=== PATIENT | female | born 1965 | race Hispanic/Latino ===

== ENCOUNTER 2016-09-02 15:25 | Emergency (ER) | payer SELFPAY ==
[~2016-09-02] VITALS: Ht 170.2 cm; Wt 84.8 kg
[~2016-09-02 15:25] MED LIST: HYDR-3816 PO
--- OUTSIDE RECORDS SUMMARY | 2016-09-02 15:30 | XMS REPORT ---
Author Author SUMANTH MADRIGAL [facility] eClinicalWorks Address Unknown Phone Unavailable Care Team Providers Care Post Office Manager Name Role Phone SUMANTH MADRIGAL CP Unavailable Allergies, Adverse Reactions, Alerts Substance Reaction Event Type N.K.D.A. Info Not Available Non Drug Allergy Problems Problem Type Condition Code Onset Dates Condition Status Problem FPC current use of insulin Z79.4 Active Problem Essential hypertension I10 Active Problem Type 2 diabetes mellitus without complications E11.9 Active Assessment Type 2 diabetes mellitus without complications E11.9 Active Assessment Essential hypertension I10 Active Assessment Acute right eye pain H57.11 Active Assessment FPC current use of insulin Z79.4 Active Medications Medication Code System Code Instructions Start Date End Date Status Dosage Metformin HCl [facility] [address]-79 1000 MG Orally Twice a day 1 tablet with meals PrednisoLONE Acetate [facility] [address]-34 1 % Ophthalmic Four times a day 2 drops into affected eye Lantus [facility] [address]-81 100 UNIT/ML Subcutaneous not defined Lisinopril [facility] [address]-64 5 MG Orally not defined Eye Drops [facility] [address]-53 0.05 % Ophthalmic every 6 hrs 1 drop into affected eye as needed Vigamox [facility] [address]-59 0.5 % Ophthalmic Four times a day 1 drop into affected eye Gabapentin [facility] [address]-41 300 MG Orally Three times a day 1 capsule Humalog [facility] [address]-83 100 UNIT/ML Subcutaneous not defined Naproxen ND 0 200 Orally Twice a day 1 tablet Procedures Procedure Coding System Code Date MICROALBUMIN, QUANTITATIVE CPT-4 90956 May 10, 2016 LIPID PANEL CPT-4 06363 May 10, 2016 ASSAY OF URINE CREATININE CPT-4 87109 May 10, 2016 GLYCATED HEMOGLOBIN TEST CPT-4 47977 May 10, 2016 COMPREHEN METABOLIC PANEL CPT-4 22862 May 10, 2016 Office Visit, New Pt., Level 3 CPT-4 45472 May 10, 2016 VENIPUNCT, ROUTINE* CPT-4 23486 May 10, 2016 Vital Signs Date/Time: May 10, 2016 Cardiac Monitoring Heart Rate 82 bpm Weight 192.0 lbs Height 5'6" in BMI 30.99 Index Blood Pressure Diastolic 82 mmHg Blood Pressure Systolic 132 mmHg Results Name Result Date Reference Range Unit Abnormality Flag ROUTINE VENIPUNCTURE A1C (IN HOUSE) ----Exp date [id number] ----Previous A1c N/A [id number] ----Lot [id number] ----A1C IN HOUSE 11.8 [id number] 4.3 - 5.6 % Summary Purpose eClinicalWorks Submission
[2016-09-02] MEDS ORDERED: INSU100V6 SQ (15:38)
[2016-09-02] MEDS ORDERED: METOPROLOL (15:38)
[2016-09-02] MEDS ORDERED: morphine INJ 10 MG/ML 1ML (SYR OR VIAL) IVP STA (15:47)
[2016-09-02] MEDS ORDERED: NS IV 1000 ML 1,000 ML IV ONE (15:48)
[2016-09-02 15:52] LABS: BASOPHILS % (AUTO) 0 % (0-10); EOSINOPHILS # (AUTO) 0.2 10^3/uL (0.0-0.3); EOSINOPHILS % (AUTO) 2 % (0-10); LYMPHOCYTES # (AUTO) 3.1 X 10^3 (1.0-4.0); LYMPHOCYTES % (AUTO) 25 % (12-44); MEAN CORPUSCULAR HEMOGLOBIN 30 PG (25-34); MEAN CORPUSCULAR HGB CONC 33 G/DL (32-36); MEAN CORPUSCULAR VOLUME 89 FL (80-99); MEAN PLATELET VOLUME 11.3 FL (7.4-10.4); MONOCYTES # (AUTO) 0.6 X 10^3 (0.0-1.0); MONOCYTES % (AUTO) 4 % (0-12); NEUTROPHILS # (AUTO) 8.6 X 10^3 (1.8-7.8); NEUTROPHILS % (AUTO) 69 % (42-75); PLATELET COUNT 278 10^3/uL (130-400); RED BLOOD COUNT 4.58 10^6/uL (4.35-5.85); RED CELL DISTRIBUTION WIDTH 12.1 % (10.0-14.5); WHITE BLOOD COUNT 12.5 10^3/uL (4.3-11.0)
[2016-09-02] MEDS ORDERED: ONDANSETRON 4 MG/2 ML (SDV) Z0FRAN IVP ONE (16:00)
[2016-09-02 16:04] LABS: ALANINE AMINOTRANSFERASE 22 U/L (0-55); ALBUMIN 3.7 G/DL (3.2-4.5); ANION GAP 11 MMOL/L (5-14); ASPARTATE AMINO TRANSFERASE 13 U/L (5-34); BILIRUBIN,TOTAL 0.2 MG/DL (0.1-1.0); BLOOD UREA NITROGEN 14 MG/DL (7-18); BUN/CREATININE RATIO 19; CALCIUM 9.5 MG/DL (8.5-10.1); CARBON DIOXIDE 25 MMOL/L (21-32); CHLORIDE 103 MMOL/L (98-107); CREATININE SERUM 0.74 MG/DL (0.60-1.30); GFR ESTIMATED > 60; GLUCOSE 260 MG/DL (70-105); POTASSIUM 4.1 MMOL/L (3.6-5.0); SODIUM 139 MMOL/L (135-145); TOTAL PROTEIN 7.1 G/DL (6.4-8.2)
--- NOTE | 2016-09-02 16:56 | Diagnostic Imaging Report ---
PROCEDURE: CT urinary tract, rule out kidney stone. TECHNIQUE: Multiple contiguous axial images were obtained through the abdomen and pelvis without the use of intravenous contrast. INDICATION: Hematuria. FINDINGS: The lung base on the right side demonstrate area of decreased density within the posterior segment of the right lower lobe which may relate to air trapping with an associated pneumatocele also present. There are mild lobulations in the contour of the liver which could correlate with chronic liver disease. Correlate clinically. No calcified gallstones seen. The spleen is not enlarged. The adrenal glands and the pancreas appear unremarkable. The kidneys demonstrate no hydronephrosis. There is a 2 mm nonobstructive stone in the upper pole of the left kidney. The abdominal aorta is normal in caliber. No para-aortic significantly enlarged lymph node seen. There is a tiny fat-containing umbilical hernia. The uterus and adnexa appear grossly unremarkable. There is no free fluid or fluid collection in the abdomen or pelvis seen. Tiny subcutaneous air bubble is seen under the skin in the right lower abdomen. This could be related to recent injection of subcutaneous medication. The osseous structures demonstrate a transitional lumbosacral junction with partial sacralization of L5. Mild degenerative changes seen. IMPRESSION: 1. A 2 mm upper pole nonobstructive left kidney stone. No other urinary tract stones. 2. Mild skin thickening and subcutaneous tiny air bubble in the right lower abdomen could relate to subcutaneous medication injection. Correlate with history. 3. Tiny fat-containing umbilical hernia. Dictated by: Dictated on workstation # [id number]
--- NOTE | 2016-09-02 17:08 | ED Abdominal Pain ---
General Chief Complaint: Abdominal/GI Problems Stated Complaint: ABD PAIN Nursing Triage Note: C/O CONSTIPATION X3DAYS, WITH INCREASED PAIN AND DIFFICULTY URINATING ONSET TODAY AT 1400 Sepsis Screen: No Definite Risk History of Present Illness Time Seen By Provider: 15:45 Initial Comments evaluation for abdominal pain 3 days. Patient has been constipated as well. She has a history of nephrolithiasis in the past. Timing/Duration: 1-3 Hours Severity/Quality: Severe Location: Flank (right) Radiation: No Radiation Activities at Onset: None Modifying Factors: Improves With Analgesics, Improves With Resting Associated Symptoms: Denies Symptoms Allergies and Home Medications Allergies Coded Allergies: No Known Drug Allergies (Unverified , 05/04/16) Home Medications (Reported) Ciprofloxacin HCl 500 Mg Tablet #6 500 MG PO BID Prescribed by: BARBARA ASKEW on 09/02/161756 Hydrocodone/Acetaminophen 1 Each Tablet #8 1 EACH PO Q6H Prescribed by: EVELYN TAO on 05/04/16 0531 Hydrocodone/Acetaminophen 1 Each Tablet #20 1 EACH PO Q4H PRN PRN PAIN Prescribed by: BARBARA ASKEW on 09/02/161756 Insulin Glargine,Hum.rec.anlog 100 Unit/1 Ml Vial 60 UNIT SQ HS (Reported) Review of Systems Constitutional: no symptoms reported see HPI EENTM: No Symptoms Reported See HPI Respiratory: No Symptoms Reported See HPI Cardiovascular: No Symptoms Reported See HPI Gastrointestinal: No Symptoms Reported See HPI Genitourinary: See HPI Flank Pain Musculoskeletal: no symptoms reported see HPI Skin: no symptoms reported see HPI Psychiatric/Neurological: No Symptoms Reported See HPI Endocrine: No Symptoms Reported See HPI Hematologic/Lymphatic: No Symptoms Reported See HPI All Other Systems Reviewed Negative Unless Noted: Yes Past Tsgmqzr-Nmeegh-Fybevp Hx Patient Social History Alcohol Use: Denies Use Recreational Drug Use: No Smoking Status: Current Everyday Smoker Type Used: Cigarettes Recent Foreign Travel: No Contact w/Someone Who Travel: No Recent Infectious Disease Expo: No Recent Hopitalizations: No Seasonal Allergies Seasonal Allergies: No Surgeries HX Surgeries: Yes Surgeries: Abdominal, Appendectomy, Coronary Stent, Orthopedic Respiratory Hx Respiratory Disorders: No Cardiovascular Hx Cardiac Disorders: Yes Cardiac Disorders: Coronary Artery Disease, Hypertension Neurological Hx Neurological Disorders: No Reproductive System Hx Reproductive Disorders: No Genitourinary Hx Genitourinary Disorders: No Gastrointestinal Hx Gastrointestinal Disorders: No Musculoskeletal Hx Musculoskeletal Disorders: No Endocrine Hx Endocrine Disorders: Yes Endocrine Disorders: Diabetes, Insulin dep HEENT HX ENT Disorders: No Cancer Hx Cancer: No Psychosocial Hx Psychiatric Problems: No Integumentary HX Skin/Integumentary Disorder: No Blood Transfusions Hx Blood Disorders: No Reviewed Nursing Assessment Reviewed/Agree w Nursing PMH: Yes Physical Exam Vital Signs VS - Last 72 Hours, by Label 09/02/16 09/02/16 15:27 18:10 Temp 98.0 Pulse 99 72 Resp 18 18 B/P 185/101 Pulse Ox 98 Capillary Refill : Less Than 3 Seconds General Appearance: WD/WN no apparent distress Neck: non-tender full range of motion normal inspection Respiratory: chest non-tender lungs clear Cardiovascular: normal peripheral pulses regular rate, rhythm no murmur Gastrointestinal: normal bowel sounds non tender soft Extremities: normal range of motion non-tender no calf tenderness normal capillary refill Back: normal inspection no vertebral tenderness CVA tenderness (R)No CVA tenderness (L) Neurologic/Psychiatric: no motor/sensory deficits alert normal mood/affect oriented x 3 Skin: normal color warm/dry Lymphatic: no adenopathy Focused Exam Lactic Acid Level Laboratory Tests Test 09/02/16 15:40 Alanine Aminotransferase (ALT/SGPT) 22U/L (0-55) Albumin 3.7G/DL (3.2-4.5) Alkaline Phosphatase 123U/L (40-136) Anion Gap 11MMOL/L (5-14) Aspartate Amino Transf (AST/SGOT) 13U/L (5-34) BUN/Creatinine Ratio 19 Blood Urea Nitrogen 14MG/DL (7-18) Calcium Level 9.5MG/DL (8.5-10.1) Carbon Dioxide Level 25MMOL/L (21-32) Chloride Level 103MMOL/L (98-107) Creatinine 0.74MG/DL (0.60-1.30) Estimat Glomerular Filtration Rate > 60 Glucose Level 260MG/DL (70-105) H Potassium Level 4.1MMOL/L (3.6-5.0) Sodium Level 139MMOL/L (135-145) Total Bilirubin 0.2MG/DL (0.1-1.0) Total Protein 7.1G/DL (6.4-8.2) Progress/Results/Core Measures Results/Orders Lab Results Laboratory Tests Test 09/02/16 15:40 3/16/17 17:03 Range/Units Alanine Aminotransferase (ALT/SGPT) 22 0-55 U/L Albumin 3.7 3.2-4.5 G/DL Alkaline Phosphatase 123 40-136 U/L Anion Gap 11 5-14 MMOL/L Aspartate Amino Transf (AST/SGOT) 13 5-34 U/L BUN/Creatinine Ratio 19 Basophils # (Auto) 0.0 0.0-0.1 10^3/uL Basophils (%) (Auto) 0 0-10 % Blood Urea Nitrogen 14 7-18 MG/DL Calcium Level 9.5 8.5-10.1 MG/DL Carbon Dioxide Level 25 21-32 MMOL/L Chloride Level 103 98-107 MMOL/L Creatinine 0.74 0.60-1.30 MG/DL Eosinophils # (Auto) 0.2 0.0-0.3 10^3/uL Eosinophils (%) (Auto) 2 0-10 % Estimat Glomerular Filtration Rate > 60 Glucose Level 260 H 70-105 MG/DL Hematocrit 41 35-52 % Hemoglobin 13.6 11.5-16.0 G/DL Lymphocytes # (Auto) 3.1 1.0-4.0 X 10^3 Lymphocytes (%) (Auto) 25 12-44 % Mean Corpuscular Hemoglobin 30 25-34 PG Mean Corpuscular Hemoglobin Concent 33 32-36 G/DL Mean Corpuscular Volume 89 80-99 FL Mean Platelet Volume 11.3 H 7.4-10.4 FL Monocytes # (Auto) 0.6 0.0-1.0 X 10^3 Monocytes (%) (Auto) 4 0-12 % Neutrophils # (Auto) 8.6 H 1.8-7.8 X 10^3 Neutrophils (%) (Auto) 69 42-75 % Platelet Count 278 130-400 10^3/uL Potassium Level 4.1 3.6-5.0 MMOL/L Red Blood Count 4.58 4.35-5.85 10^6/uL Red Cell Distribution Width 12.1 10.0-14.5 % Sodium Level 139 135-145 MMOL/L Total Bilirubin 0.2 0.1-1.0 MG/DL Total Protein 7.1 6.4-8.2 G/DL White Blood Count 12.5 H 4.3-11.0 10^3/uL Urine Bacteria FEW H /HPF Urine Bilirubin NEGATIVE NEGATIVE Urine Casts NONE /LPF Urine Clarity VERY CLOUDY H Urine Color YELLOW Urine Crystals NONE /LPF Urine Culture Indicated NO Urine Glucose (UA) 4+ H NEGATIVE Urine Ketones NEGATIVE NEGATIVE Urine Leukocyte Esterase 1+ H NEGATIVE Urine Mucus NEGATIVE /LPF Urine Nitrite NEGATIVE NEGATIVE Urine Protein 3+ H NEGATIVE Urine RBC 50-100 H /HPF Urine RBC (Auto) 5+ H NEGATIVE Urine Specific [place] 1.025 H 1.016-1.022 Urine Squamous Epithelial Cells 2-5 /HPF Urine Urobilinogen NORMAL NORMAL MG/DL Urine WBC RARE /HPF Urine pH 6 5-9 My Orders Orders-AZARBARBARA [employer] Cbc With Automated Diff (09/02/16 15:46) Comprehensive Metabolic Panel (09/02/16 15:46) Ua Culture If Indicated (09/02/16 15:46) Saline Lock/Iv-Start (09/02/16 15:47) Saline Lock/Iv-Start (09/02/16 15:47) Morphine Injection (Morphine Injection (09/02/16 15:47) Saline Lock/Iv-Start (09/02/16 15:48) Ns Iv 1000 Ml (Sodium Chloride 0.9%) (09/02/16 15:48) Ondansetron Injection (Zofran Injectio (09/02/16 16:00) Ct Abd/Pelvis Wo(Kidney Stone) (09/02/16 15:55) Ketorolac Injection (Toradol Injection) (09/02/16 17:53) Medications Given in ED Current Medications Medications Dose Ordered Sig/Opal Route Start Time Stop Time Status Last Admin Dose Admin Ondansetron HCl 4 mg ONCE ONCE IVP 09/02/16 16:00 09/02/16 16:01 DC 09/02/16 16:08 4 MG Sodium Chloride 1,000 ml @ 0 mls/hr Q0M ONCE IV 09/02/16 15:48 09/02/16 15:49 DC 09/02/16 15:52 1,000 MLS/HR Vital Signs/I&O Vital Sign - Last 12Hours 17 09/02/16 15:27 18:10 Temp 98.0 Pulse 99 72 Resp 18 18 B/P 185/101 Pulse Ox 98 Blood Pressure Mean: 129 Progress Note : Time: 15:45 Progress Note Initial evaluation for acute low back pain. Morphine 5 mg IV for pain, normal saline 1 L IV fluids, labs and CT abdomen and pelvis to be completed. 1750 pain improved slightly, discussed findings of labs and CT with patient. Will plan outpatient management with increased oral hydration and analgesics. She has a follow-up appointment on the 09/06/16 at [facility]. Diagnostic Imaging Diagonstic Imaging: CT Plain Films/CT/US/NM/MRI: abdomen, pelvis Comments NAME: JENNIFER TERRELL [facility] REC#: [id number] PT STATUS: REG ER : 1965 PHYSICIAN: BARBARA ASKEW ADMIT DATE: 09/02/16/ER Draft Date of Exam:09/02/16 CT ABD/PELVIS WO(KIDNEY STONE) PROCEDURE: CT urinary tract, rule out kidney stone. TECHNIQUE: Multiple contiguous axial images were obtained through the abdomen and pelvis without the use of intravenous contrast. INDICATION: Hematuria. FINDINGS: The lung base on the right side demonstrate area of decreased density within the posterior segment of the right lower lobe which may relate to air trapping with an associated pneumatocele also present. There are mild lobulations in the contour of the liver which could correlate with chronic liver disease. Correlate clinically. No calcified gallstones seen. The spleen is not enlarged. The adrenal glands and the pancreas appear unremarkable. The kidneys demonstrate no hydronephrosis. There is a 2 mm nonobstructive stone in the upper pole of the left kidney. The abdominal aorta is normal in caliber. No para-aortic significantly enlarged lymph node seen. There is a tiny fat-containing umbilical hernia. The uterus and adnexa appear grossly unremarkable. There is no free fluid or fluid collection in the abdomen or pelvis seen. Tiny subcutaneous air bubble is seen under the skin in the right lower abdomen. This could be related to recent injection of subcutaneous medication. The osseous structures demonstrate a transitional lumbosacral junction with partial sacralization of L5. Mild degenerative changes seen. IMPRESSION: 1. A 2 mm upper pole nonobstructive left kidney stone. No other urinary tract stones. 2. Mild skin thickening and subcutaneous tiny air bubble in the right lower abdomen could relate to subcutaneous medication injection. Correlate with history. 3. Tiny fat-containing umbilical hernia. Dictated on workstation # [id number] Dict: 09/02/16 1635 Trans: 09/02/16 1655 [id number] Interpreted by: DOMO WANG MD Electronically signed by: Reviewed: Reviewed by Me Departure Impression Impression: Primary Impression: Nephrolithiasis Additional Impression: Hyperglycemia due to type 2 diabetes mellitus Qualified Code: E11.65 - Type 2 diabetes mellitus with hyperglycemia Disposition: HOME, SELF-CARE Condition: Stable Departure-Patient Inst. Decision time for Depature: 17:40 Referrals: NO,LOCAL PHYSICIAN (PCP) Primary Care Physician Patient Instructions: Kidney Stones (DC) Add. Discharge Instructions: All discharge instructions reviewed with patient and/or family. Voiced understanding. Increase fluid intake. Return to emergency department for increased pain, decreased urinary output, or any new concerns. Keep appointment with [facility] for [facility] Scripts Hydrocodone/Acetaminophen (Hydrocodon -Acetaminophen 5-325)1 Each Tablet1 Each PO Q4H PRN PAIN #20 TAB Ref 0 Prov:BARBARA ASKEW 09/02/16 Ciprofloxacin HCl (Cipro)500 Mg [id number] Mg PO BID #6 TAB Ref 0 Prov:BARBARA ASKEW 09/02/16 BARBARA ASKEW Sep 02, 2016 17:08
[2016-09-02 17:17] LABS: BILIRUBIN,URINE NEGATIVE (NEGATIVE); KETONES,URINE NEGATIVE (NEGATIVE); LEUKOCYTE ESTERASE ,URINE 1+ (NEGATIVE); NITRITE,URINE NEGATIVE (NEGATIVE); PH,URINE 6 (5-9); PROTEIN,URINE 3+ (NEGATIVE); UROBILINOGEN,URINE NORMAL (NORMAL)
[2016-09-02 17:32] LABS: WBC,URINE RARE /HPF
[2016-09-02] MEDS ORDERED: KETOROLAC 30 MG/ML VIAL IVP STA (17:53)
[2016-09-02] MEDS ORDERED: HYDR-3812 PO (17:57)
[2016-09-02] MEDS ORDERED: CIPR-225 PO (17:57)
[2016-09-02 18:10] VITALS: BP 136/71
== END 2016-09-02 18:10 | disposition home or self-care (01) ==
LOC: EDUNIT# 15:25 → ER 15:26
DX: R10.30 Lower abdominal pain, unspecified (principal); N20.0 Calculus of kidney; K59.00 Constipation, unspecified; I10 Essential (primary) hypertension; E11.65 Type 2 diabetes mellitus with hyperglycemia; F17.210 Nicotine dependence, cigarettes, uncomplicated; Z79.4 Long term (current) use of insulin; Z79.899 Other long term (current) drug therapy; Z95.5 Presence of coronary angioplasty implant and graft
CPT/HCPCS: 36415; 74176; 80053; 81000; 85025; 96361; 96374; 96375

== ENCOUNTER → 2016-10-04 | Outpatient (CLI) | payer OTHER ==
[~2016-10-04] MED LIST changes: +CIPR-225 PO; +HYDR-3812 PO; +INSU100V6 SQ; +METOPROLOL
--- NOTE | 2016-10-08 08:55 | Diagnostic Imaging Report ---
Bilateral screening mammogram The current study was also evaluated with a Computer Aided Detection (CAD) system. INDICATION: Screening. No current complaints stated on the questionnaire. COMPARISON: 07/09/11. FINDINGS: The breasts are composed of heterogeneously dense parenchyma which may decrease mammographic sensitivity. There are occasional benign-appearing calcifications. There is a 1 cm oval asymmetry in the lateral posterior aspect of the left CC projection with no definite correlate on the MLO view. The right breast demonstrates no definite change. IMPRESSION: Focal compression views and ultrasound evaluation for lateral left breast asymmetry is recommended. ACR BI-RADS Category 0: Incomplete. (Needs additional imaging evaluation). Result letter will be mailed to the patient. Note: At least 10% of breast cancer is not imaged by mammography. Dictated by: Dictated on workstation # [id number]
== END ==
LOC: RAD 10:52
PROVIDERS: ATTEND Family Medicine
DX: Z12.31 Encounter for screening mammogram for malignant neoplasm of breast (principal)
CPT/HCPCS: 77067

== ENCOUNTER → 2016-10-25 | Outpatient (CLI) | payer OTHER ==
--- NOTE | 2016-10-25 19:33 | Diagnostic Imaging Report ---
Left breast diagnostic mammogram. INDICATION: Asymmetry along the outer aspect of the left breast. The current study was also evaluated with a Computer Aided Detection (CAD) system. FINDINGS: There is heterogeneously dense parenchyma seen on the left side. The asymmetry noted on the screening exam of 10/04/16 is evaluated with focal compression view which demonstrates an underlying persistent density and question of a correlating asymmetry in the upper aspect of the left breast. This is partially obscured by adjacent fibroglandular tissue. IMPRESSION: Persistent asymmetry in the outer aspect of the left breast with corresponding density appears to be present in the upper aspect of the left breast. Ultrasound evaluation pending. ACR BI-RADS Category 0: Incomplete. (Needs additional imaging evaluation). Result letter will be mailed to the patient. Note: At least 10% of breast cancer is not imaged by mammography. Dictated by: Dictated on workstation # [id number]
--- NOTE | 2016-10-25 20:09 | Diagnostic Imaging Report ---
Left breast ultrasound. INDICATION: Outer left breast asymmetry. FINDINGS: The outer aspect of the left breast is scanned with no abnormality seen. IMPRESSION: Negative study. The asymmetry seen on mammography could be related to summation artifact of parenchyma. Six-month follow-up left breast mammogram is recommended to ensure stability or resolution. ACR BI-RADS Category 3: Probably benign findings. Dictated by: Dictated on workstation # [id number]
== END ==
LOC: RAD 13:10
PROVIDERS: ATTEND Family Medicine
DX: R92.8 Other abnormal and inconclusive findings on diagnostic imaging of breast (principal)
CPT/HCPCS: 76642

== ENCOUNTER → 2017-05-11 | Outpatient (CLI) | payer OTHER ==
--- NOTE | 2017-05-11 19:30 | Diagnostic Imaging Report ---
EXAMINATION: Left breast diagnostic mammogram with tomography. The current study was also evaluated with a Computer Aided Detection (CAD) system. INDICATION: Followup outer left breast asymmetry. FINDINGS: The previously seen asymmetry in the outer aspect of the left breast is less prominent on the current exam in favor of summation artifact of parenchyma. No adverse development. IMPRESSION: Less prominent asymmetry in the outer aspect of the left breast suggestive of summation artifact of parenchyma with no adverse development. Annual screening mammograms are recommended with the next exam due in September 2017. ACR BI-RADS Category 2: Benign findings. Result letter will be mailed to the patient. Note: At least 10% of breast cancer is not imaged by mammography. Dictated on workstation # [id number]
== END ==
LOC: RAD 14:08
PROVIDERS: ATTEND Family Medicine
DX: R92.8 Other abnormal and inconclusive findings on diagnostic imaging of breast (principal)